=== PATIENT | male | born 1970 | race Caucasian/White ===

== ENCOUNTER 2016-09-14 20:34 | Emergency (ER) | payer BC ==
[2016-09-14] MEDS ORDERED: PROCHLORPERAZINE 5 MG/ML 2 ML VIAL ONE (20:47)
[2016-09-14] MEDS ORDERED: ACETAMINOPHEN 325 MG TABLET ONE (20:47)
[2016-09-14] MEDS ORDERED: LACTATED RINGERS 1,000 ML ONE (20:48)
[2016-09-14 21:53] LABS: BASO # 0.1 K/mm3 (0.0-0.2); BASO % 0.5 % (0.2-1.0); EOS # 0.1 (0.0-0.5); EOS % 0.8 % (0.9-2.9); HEMATOCRIT 44.4 % (32.0-52.0); HEMOGLOBIN 15.2 gm/l (14.0-18.0); IMM NEUT% 0.2 % (0-1); LYMPH # 1.9 (1.0-4.8); MEAN CELL VOLUME 91.2 fl (80.0-94.0); MEAN CORPUSCULAR HEMOGLOBIN 31.2 pg (27.0-31.0); MEAN CORPUSCULAR HGB CONC 34.2 g/dl (33.0-37.0); MEAN PLATELET VOLUME 9.5 fl (7.4-10.4); MONO # 1.2 (0.0-0.8); MONO % 13.3 % (4-12); NEUT % 65.2 % (43-75); PLATELET COUNT 208 K/mm3 (130-400); RED CELL DISTRIBUTION WIDTH 11.7 % (11.5-14.5)
[2016-09-14 22:16] LABS: ALB/GLOB RATIO 1.3 (>1.0); ALBUMIN 4.2 gm/dL (3.5-5.7)
[2016-09-14 22:19] LABS: TROPONIN I < 0.01 ng/ml (0.0-0.06)
[2016-09-14 22:23] LABS: CKMB ISOENZYME 1.4 ng/ml (0.6-6.3)
[2016-09-14] MEDS ORDERED: KETOROLAC TROMETHAMINE 30 MG/ML 1 ML VIAL ONE (23:18)
--- NOTE | 2016-09-15 08:00 | RAD ---
Exam: Two-view chest COMPARISON: None INDICATION: Chest and arm pain. FINDINGS: PA and lateral views of the chest were obtained. Lung volumes are low with bibasilar atelectasis, left greater than right. Upper lungs are clear. Cardiac silhouette is within normal limits. There is no pleural effusion. Bones of the chest wall are within normal limits. IMPRESSION: Low lung volumes with bibasilar atelectasis, left greater than right.
== END 2016-09-14 23:39 | disposition home or self-care (01) ==
LOC: ED 20:34
DX: R09.1 Pleurisy (principal); R07.9 Chest pain, unspecified; M25.519 Pain in unspecified shoulder
CPT/HCPCS: 85025; 82553; 80053; 84484; 71020; 99284 ×2; 96374; 93005; J0780; J1885; A9270; J7120

== ENCOUNTER 2016-09-17 12:08 | Emergency (ER) | payer BC ==
[2016-09-17] MEDS ORDERED: IOPAMIDOL 370 (76%) 100 ML VIAL IV ONE (12:09)
[2016-09-17] MEDS ORDERED: ALBUTEROL/IPRATROPIUM 2.5/0.5 MG 3 ML/EACH DOSE ONE (12:28)
--- NOTE | 2016-09-17 13:04 | RAD ---
Exam: Two-view chest COMPARISON: 09/14/2016 INDICATION: Cough and shortness of breath. FINDINGS: PA and lateral views of the chest were obtained. Lung volumes remain low, and there is increasing bibasilar atelectasis which is greater on the left. There is blunting the posterior costophrenic angles suggesting pleural effusions. Upper lungs are clear. Cardiac silhouette is within normal limits. Bones the chest wall within normal limits. IMPRESSION: Worsening bibasilar atelectasis, left greater than right. New small pleural effusions.
[2016-09-17] MEDS ORDERED: LACTATED RINGERS 1,000 ML ONE (13:21)
[2016-09-17] MEDS ORDERED: KETOROLAC TROMETHAMINE 30 MG/ML 1 ML VIAL ONE (13:21)
--- NOTE | 2016-09-17 15:36 | CT ---
Exam: CT angiogram chest with contrast Comparison: Chest radiograph 09/17/2016, 09/14/2016 History: Worsening cough and left chest wall pain. Elevated d-dimer. Technique: CT angiogram of the chest was obtained following the administration of 80 mL Isovue-370 intravenous contrast using a CT angiogram pulmonary embolism protocol which was supplemented with MIP reformations constructed at the CT workstation. Findings: Evaluation of the lung bases is somewhat limited due to the bibasilar atelectasis and motion artifact. Timing bolus is also suboptimal. There is no evidence of acute pulmonary thromboembolic disease to the segmental level in the lung bases into the subsegmental level in the upper lobes. There are small bilateral pleural effusions and bibasilar atelectasis, right slightly greater than left. No pulmonary edema is identified. There is no pericardial effusion. The main pulmonary artery, however, is noted to be prominentt, suggesting underlying pulmonary hypertension. Limited evaluation of the upper abdomen demonstrates hepatic steatosis but is otherwise unremarkable. No worrisome lytic or blastic osseous lesion is identified. IMPRESSION: 1. Suboptimal evaluation of the pulmonary arteries, particularly within the lung bases, however no evidence of pulmonary thromboembolic disease is identified. 2. Small bilateral pleural effusions and bibasilar atelectasis, right greater than left. 3. Hepatic steatosis. Message left for Dr. Palmer 1509 hours 09/17/2016.
== END 2016-09-17 15:34 | disposition home or self-care (01) ==
LOC: ED 12:08
DX: R07.9 Chest pain, unspecified (principal); R09.1 Pleurisy; J98.01 Acute bronchospasm
CPT/HCPCS: 85379; 71020; 71275; 94640; 99284 ×2; 96374; 96361; 93005; J1885; J7120; Q9967